=== PATIENT | female | born 1990 | race African-American/Black ===

== ENCOUNTER 2022-09-21 20:18 | Emergency (ER) | payer OTHER ==
[~2022-09-21] VITALS: Ht 170.2 cm; Wt 77.1 kg
[2022-09-21 20:25] VITALS: BP 140/90
--- NOTE | 2022-09-21 20:28 | NUR ---
TO LOBBY A/W BED AMBULATORY
--- NOTE | 2022-09-21 20:40 | NUR ---
PT TO BED #9
--- NOTE | 2022-09-21 20:50 | NUR ---
PT RESTING ON BED. NOT IN DISTRESS, ATTACHED TO MONITOR
--- NOTE | 2022-09-21 21:12 | NUR ---
Dior marie in [facility] - 09/21/22 at 2112 by [email or web address] URTINE GIVEN TO LAB
--- NOTE | 2022-09-21 21:12 | NUR ---
URINE GIVEN TO LAB
[2022-09-21] MEDS ORDERED: KETOROLAC 30 MG/ML VIAL IM ONE (21:15)
[2022-09-21 21:21] LABS: APPEARANCE,URINE CLEAR (CLEAR); BILIRUBIN,URINE 1+ (NEGATIVE); BLOOD, URINE 1+ (NEGATIVE); COLOR,URINE YELLOW (YELLOW); LEUKOCYTE ESTERASE ,URINE NEGATIVE (NEGATIVE); NITRITE, URINE NEGATIVE (NEGATIVE); UGLUCOSE NEGATIVE (NEGATIVE)
[2022-09-21 21:50] LABS: TRICHOMONAS,URINE None Seen /HPF (None Seen); YEAST,URINE None Seen /HPF (None Seen)
[2022-09-21] MEDS ORDERED: LID5T TP (22:47)
[2022-09-21] MEDS ORDERED: CYCL-711 PO (22:47)
[2022-09-21] MEDS ORDERED: NAPR-1704 PO (22:47)
[2022-09-21 23:00] VITALS: BP 130/90
== END 2022-09-21 23:00 | disposition home or self-care (01) ==
LOC: MED 20:18
DX: M54.50 Low back pain, unspecified (principal)
CPT/HCPCS: 72110; 81001; 81025; 96372; 99284; J1885